=== PATIENT | female | born 1950 | race Caucasian/White ===

== ENCOUNTER 2017-03-25 17:55 | Emergency (ER) | payer OTHER, BC ==
[~2017-03-25] VITALS: Ht 167.6 cm; Wt 83.9 kg
[~2017-03-25 17:55] MED LIST: BIOTCAP2 PO; CHOL100027 PO; LOSA1TAB PO; MULTTAB PO; SERT100T PO; SOLI5TAB2 PO; ZOLP5TAB PO
[2017-03-25 18:11] VITALS: Ht 167.6 cm; Wt 83.9 kg
[2017-03-25] MEDS ORDERED: ONDANSETRON INJ 2 MG/ML 2 ML VIAL IV STA (18:20)
[2017-03-25] MEDS ORDERED: MoRPHine SULFATE 4 MG/ML 1 ML CARP\\VIAL IV STA (18:20)
[2017-03-25] MEDS ORDERED: HYDROmorphone INJ 1 MG/ML SYR IV STA (19:14)
[2017-03-25] MEDS ORDERED: LOSA50TA6 PO (19:20)
[2017-03-25] MEDS ORDERED: RANI150T2 PO (19:25)
[2017-03-25] MEDS ORDERED: LANS15CA27 PO (19:25)
[2017-03-25] MEDS ORDERED: TRAZ50TA35 PO (19:25)
--- NOTE | 2017-03-25 19:27 | DIAGNOSTIC IMAGING REPORT ---
ABD/PELVIS WITHOUT FOR STONE HISTORY: 67 years-old Female right flank pain eval for stone acute right-sided flank pain with concern for calculus. History of prior gastric bypass COMPARISON: Upper GI series 09/18/2012 TECHNIQUE: Multiple axial CT images of the abdomen and pelvis were obtained without contrast. A dose lowering technique was used consistent with the principals of HI. FINDINGS: Mild bibasilar bronchial wall thickening is noted. Groundglass opacities are present within the lung bases. Noncalcified nodules are seen within the lung bases, largest of which measures 6 mm within the lateral basal segment right lower lobe seen on image 23 series 3. No pneumoperitoneum identified. The imaged inferior cardiac chambers are mildly enlarged. The liver, pancreas and adrenal glands are within normal limits. Calcifications of the inferior posterior spleen are noted. Mild nonspecific left-sided perinephric inflammatory stranding with otherwise normal appearance of the left kidney and left ureter. Moderate right sided obstructive uropathy secondary to a 5 x 4 x 4 mm calculus of the right ureterovesicular junction. Additional right-sided nonobstructing renal calculi are present, largest of which includes a 5 mm calculus of the inferior pole right kidney. The urinary bladder is collapsed. Prior hysterectomy. Adnexa are unremarkable. There is moderate atherosclerotic plaquing of the abdominal aorta. No bulky adenopathy identified. Prior Jarvis-en-Y gastric bypass without complication. No bowel obstruction or focal bowel wall thickening. Rectosigmoid is collapsed. The appendix appears normal. Soft tissues are unremarkable. Multilevel facet arthropathy of the lumbar spine. Discogenic degenerative changes are seen of the thoracic spine. Mild convex left curvature of the lumbar spine. IMPRESSION: 1. Moderate right-sided hydroureteronephrosis secondary to a 5 x 4 x 4 mm calculus of the distal right ureter within the region of the right ureterovesicular junction. Additional nonobstructing right renal calculi are present. 2. Bibasilar bronchial wall thickening with scattered groundglass opacities suggests bronchitis with pneumonitis. 3. Solid noncalcified pulmonary nodules of the lung bases measuring up to 6 mm suggests infectious or inflammatory etiology, however nonemergent follow-up chest CT to assess for additional pulmonary nodules recommended. 4. Normal appendix. 5. Prior hysterectomy. The above report was generated using voice recognition software. It may contain grammatical, syntax or spelling errors. Electronically signed by: Julio Turner M.D. 03/25/2017 7:25 PM Dictated Date/Time: 03/25/2017 7:15 PM
[2017-03-25] MEDS ORDERED: SODIUM CHLORIDE 0.9% 500ML 500 ML IV STA (19:47)
[2017-03-25 19:49] LABS: BASO % 0.1 %; BASO ABS # 0.01 K/uL (0-0.2); COMPLETE YES; EOS % 0.3 %; HEMATOCRIT 44.8 % (37-47); IG% 0.2 %; LYMPH % 10.5 %; LYMPH ABS # 1.18 K/uL (1.2-3.4); MEAN CELL VOLUME 91.2 fL (80-100); MEAN CORPUSCULAR HEMOGLOBIN 30.1 pg (25-34); MEAN PLATELET VOLUME 9.9 fL (7.4-10.4); MONO % 6.5 %; NEUT % 82.4 %; PLATELET COUNT 198 K/uL (130-400); RED BLOOD COUNT 4.91 M/uL (4.2-5.4); WHITE BLOOD COUNT 11.23 K/uL (4.8-10.8)
[2017-03-25 20:05] LABS: BUN/CREATININE RATIO 18.4 (10-20); CALCIUM 8.9 mg/dl (8.5-10.1); CREATININE 0.8 mg/dl (0.60-1.20); POTASSIUM 3.5 mmol/L (3.5-5.1)
[2017-03-25] MEDS ORDERED: KETOROLAC TROMETHAMINE 30 MG/ML VIAL IV STA (21:36)
[2017-03-25 21:50] LABS: URINE APPEARANCE CLEAR (CLEAR); URINE BILIRUBIN NEG (NEG); URINE COLOR YELLOW; URINE EPITHELIAL CELL AUTO 20-30 /lpf (0-5); URINE NITRITE NEG (NEG); UROBILINOGEN NEG (NEG)
[2017-03-25 21:55] LABS: MANUAL MICROSCOPIC REQUIRED? NO; REVIEW REQ? YES
[2017-03-25] MEDS ORDERED: OXYC1TAB3 PO (22:38)
[2017-03-25] MEDS ORDERED: OXYCODONE IR HOME PACK PO ONE (22:45)
[2017-03-25 22:59] VITALS: BP 123/53; PULSE 74; TEMP 37; O2SAT 93
--- NOTE | 2017-03-25 23:24 | EMERGENCY ROOM VISIT NOTE ---
History Report prepared by Shruthi: Maribel Ramon Under the Supervision of: Dr. Merrick Sutton M.D. First contact with patient: 18:16 Chief Complaint: FLANK PAIN Stated Complaint: PAIN IN KIDNEY AREA, RT SIDE History of Present Illness The patient is a 67 year old female who presents to the Emergency Room with complaints of worsening right flank pain starting last night. The patient states that the pain is sharp and moves around to the front. She reports that the pain is constant and not intermittent. She reports that she has been vomiting. She denies having a fever. She notes she has been having issues urinating, but denies burning with urination and hematuria. She states that she just can't go. She does use Vesicare. She notes that she does have diarrhea. She denies a history of kidney stones and notes that she has had a cholecystectomy. The patient states that she took Ibuprofen four hours ago. Source of History: patient Onset: last night Position: other (right flank) Quality: sharp Timing: constant, worsening Modifying Factors (Relieving): ibuprofen Associated Symptoms: + vomiting, + diarrhea, + urinary symptoms, No fevers Review of Systems See HPI for pertinent positives & negatives. A total of 10 systems reviewed and were otherwise negative. Past Medical & Surgical Medical Problems: (1) Hypertension Surgical Problems: (1) History of cholecystectomy (2) History of gastric bypass Family History Diabetes mellitus FHx: cancer FHx: gallbladder disease FHx: heart disease Hypertension Kidney disease Kidney stones Social History Smoking Status: Never Smoker Marital Status: Housing Status: lives with significant other Occupation Status: retired Current/Historical Medications Scheduled Biotin (Biotin 5000), 1 TAB PO BID Cholecalciferol (Vitamin D 1000 Unit), 2,000 INTER.UNIT PO DAILY Lansoprazole (Prevacid), 15 MG PO QAM Losartan Potassium (Cozaar), 1 TAB PO DAILY Multivitamins/Minerals (Mvi With Minerals), 1 TAB PO DAILY Ranitidine HCl (Ranitidine HCl), 150 MG PO DAILY Sertraline Hcl (Zoloft), 100 MG PO DAILY Solifenacin Succinate (Vesicare), 5 MG PO Q2D Trazodone Hcl (Trazodone), 50 MG PO HS Scheduled PRN Oxycodone Ir (Roxicodone Ir), 5 MG PO Q4H PRN for Pain Zolpidem Tartrate (Ambien), 5-10 MG PO HS PRN for Sleep Allergies Coded Allergies: Prednisone (Verified Allergy, Intermediate, HEADACHES, 03/25/17) Codeine (Unverified Adverse Reaction, Severe, GETS SICK, 03/25/17) Physical Exam Vital Signs Date Time Temp Pulse Resp B/P (MAP) Pulse Ox O2 Delivery O2 Flow Rate FiO2 03/25/17 22:59 37.0 74 18 123/53 93 03/25/17 22:53 74 18 123/53 93 Room Air 03/25/17 19:44 62 18 158/62 98 Room Air 03/25/17 18:11 37.0 58 16 140/73 96 Room Air Physical Exam Constitutional: Vital signs reviewed. Eyes: Pupils are equal round reactive to light. Conjunctiva are noninjected. ENT: Pharynx is clear without erythema or exudate. Mucous membranes are moist. Neck supple without meningeal signs. Respiratory: Clear to auscultation bilaterally. Breath sounds are equal bilaterally. Cardiovascular: Regular rate and rhythm. No rubs or gallops. GI: Soft and nondistended. Right upper quadrant tenderness. No guarding. Bowel sounds are present. Musculoskeletal: No peripheral edema. No CVA tenderness. Integumentary: No cyanosis. Neurological: The patient is awake and alert. No focal deficits. Psychiatric: Normal affect. Medical Decision & Procedures ER Provider Diagnostic Interpretation: Radiology results as stated below per my review and the radiologist's interpretation: ABD/PELVIS WITHOUT FOR STONE HISTORY: 67 years-old Female right flank pain eval for stone acute right-sided flank pain with concern for calculus. History of prior gastric bypass COMPARISON: Upper GI series 09/18/2012 TECHNIQUE: Multiple axial CT images of the abdomen and pelvis were obtained without contrast. A dose lowering technique was used consistent with the principals of HI. FINDINGS: Mild bibasilar bronchial wall thickening is noted. Groundglass opacities are present within the lung bases. Noncalcified nodules are seen within the lung bases, largest of which measures 6 mm within the lateral basal segment right lower lobe seen on image 23 series 3. No pneumoperitoneum identified. The imaged inferior cardiac chambers are mildly enlarged. The liver, pancreas and adrenal glands are within normal limits. Calcifications of the inferior posterior spleen are noted. Mild nonspecific left-sided perinephric inflammatory stranding with otherwise normal appearance of the left kidney and left ureter. Moderate right sided obstructive uropathy secondary to a 5 x 4 x 4 mm calculus of the right ureterovesicular junction. Additional right-sided nonobstructing renal calculi are present, largest of which includes a 5 mm calculus of the inferior pole right kidney. The urinary bladder is collapsed. Prior hysterectomy. Adnexa are unremarkable. There is moderate atherosclerotic plaquing of the abdominal aorta. No bulky adenopathy identified. Prior Jarvis-en-Y gastric bypass without complication. No bowel obstruction or focal bowel wall thickening. Rectosigmoid is collapsed. The appendix appears normal. Soft tissues are unremarkable. Multilevel facet arthropathy of the lumbar spine. Discogenic degenerative changes are seen of the thoracic spine. Mild convex left curvature of the lumbar spine. IMPRESSION: 1. Moderate right-sided hydroureteronephrosis secondary to a 5 x 4 x 4 mm calculus of the distal right ureter within the region of the right ureterovesicular junction. Additional nonobstructing right renal calculi are present. 2. Bibasilar bronchial wall thickening with scattered groundglass opacities suggests bronchitis with pneumonitis. 3. Solid noncalcified pulmonary nodules of the lung bases measuring up to 6 mm suggests infectious or inflammatory etiology, however nonemergent follow-up chest CT to assess for additional pulmonary nodules recommended. 4. Normal appendix. 5. Prior hysterectomy. The above report was generated using voice recognition software. It may contain grammatical, syntax or spelling errors. Electronically signed by: Julio Turner M.D. 03/25/2017 7:25 PM Dictated Date/Time: 03/25/2017 7:15 PM Laboratory Results 03/25/17 19:38 Red Blood Count 4.91, Mean Corpuscular Volume 91.2, Mean Corpuscular Hemoglobin 30.1, Mean Corpuscular Hemoglobin Concent 33.0, Mean Platelet Volume 9.9, Neutrophils (%) (Auto) 82.4, Lymphocytes (%) (Auto) 10.5, Monocytes (%) (Auto) 6.5, Eosinophils (%) (Auto) 0.3, Basophils (%) (Auto) 0.1, Neutrophils # (Auto) 9.26, Lymphocytes # (Auto) 1.18, Monocytes # (Auto) 0.73, Eosinophils # (Auto) 0.03, Basophils # (Auto) 0.01 03/25/17 19:38 Test 03/25/17 19:38 03/25/17 21:31 White Blood Count 11.23 K/uL (4.8-10.8) Red Blood Count 4.91 M/uL (4.2-5.4) Hemoglobin 14.8 g/dL (12.0-16.0) Hematocrit 44.8 % (37-47) Mean Corpuscular Volume 91.2 fL (80-100) Mean Corpuscular Hemoglobin 30.1 pg (25-34) Mean Corpuscular Hemoglobin Concent 33.0 g/dl (32-36) Platelet Count 198 K/uL (130-400) Mean Platelet Volume 9.9 fL (7.4-10.4) Neutrophils (%) (Auto) 82.4 % Lymphocytes (%) (Auto) 10.5 % Monocytes (%) (Auto) 6.5 % Eosinophils (%) (Auto) 0.3 % Basophils (%) (Auto) 0.1 % Neutrophils # (Auto) 9.26 K/uL (1.4-6.5) Lymphocytes # (Auto) 1.18 K/uL (1.2-3.4) Monocytes # (Auto) 0.73 K/uL (0.11-0.59) Eosinophils # (Auto) 0.03 K/uL (0-0.5) Basophils # (Auto) 0.01 K/uL (0-0.2) RDW Standard Deviation 46.0 fL (36.4-46.3) RDW Coefficient of Variation 13.7 % (11.5-14.5) Immature Granulocyte % (Auto) 0.2 % Immature Granulocyte # (Auto) 0.02 K/uL (0.00-0.02) Anion Gap 7.0 mmol/L (3-11) Est Creatinine Clear Calc Drug Dose 72.4 ml/min Estimated GFR () 87.2 Estimated GFR (Non- 75.2 BUN/Creatinine Ratio 18.4 (10-20) Calcium Level 8.9 mg/dl (8.5-10.1) Total Bilirubin 0.4 mg/dl (0.2-1) Direct Bilirubin 0.1 mg/dl (0-0.2) Aspartate Amino Transf (AST/SGOT) 50 U/L (15-37) Alanine Aminotransferase (ALT/SGPT) 37 U/L (12-78) Alkaline Phosphatase 76 U/L (45-117) Total Protein 6.9 gm/dl (6.4-8.2) Albumin 3.7 gm/dl (3.4-5.0) Lipase 105 U/L (73-393) Urine Color YELLOW Urine Appearance CLEAR (CLEAR) Urine pH 5.0 (4.5-7.5) Urine Specific [place] 1.010 (1.000-1.030) Urine Protein NEG (NEG) Urine Glucose (UA) NEG (NEG) Urine Ketones NEG (NEG) Urine Occult Blood 3+ (NEG) Urine Nitrite NEG (NEG) Urine Bilirubin NEG (NEG) Urine Urobilinogen NEG (NEG) Urine Leukocyte Esterase TRACE (NEG) Urine WBC (Auto) 5-10 /hpf (0-5) Urine RBC (Auto) >30 /hpf (0-4) Urine Hyaline Casts (Auto) 1-5 /lpf (0-5) Urine Epithelial Cells (Auto) 20-30 /lpf (0-5) Urine Bacteria (Auto) NEG (NEG) Urine Crystals (NONE PRSENT) Laboratory results as reviewed by me. Medications Administered Medications (Trade) Dose Ordered Sig/Andra Route Start Time Stop Time Status Last Admin Dose Admin Morphine Sulfate (MoRPHine SULFATE INJ) 4 mg ONE STAT IV 03/25/17 18:20 03/25/17 18:22 DC 03/25/17 18:36 4 MG Ondansetron HCl (Zofran Inj) 4 mg NOW STAT IV 03/25/17 18:20 03/25/17 18:22 DC 03/25/17 18:36 4 MG Hydromorphone HCl (Dilaudid Inj) 0.5 mg NOW STAT IV 03/25/17 19:14 03/25/17 19:15 DC 03/25/17 19:31 0.5 MG Sodium Chloride 500 ml @ 999 mls/hr Q31M STAT IV 03/25/17 19:47 03/25/17 20:17 DC 03/25/17 19:51 999 MLS/HR Ketorolac Tromethamine (Toradol Inj) 10 mg NOW STAT IV 03/25/17 21:36 03/25/17 21:37 DC 03/25/17 21:41 10 MG Oxycodone HCl (Roxicodone Immediate Rel 5MG Home Pack) 1 homepack UD ONCE PO 03/25/17 22:45 03/25/17 22:46 DC 03/25/17 22:55 1 HOMEPACK ED Course 1816: The patient was evaluated in room B3B. A complete history and physical exam was performed. 1819: Ordered Zofran Inj 4 mg IV, Morphine Sulfate 4 mg IV. 1853: I reevaluated the patient and she is still in pain. 1913: Ordered Dilaudid Inj 0.5 mg IV. 1939: I reevaluated the patient and talked to her about her results. She just got her Dilaudid. 1946: Ordered NSS 500 ml @ 999 mls/hr IV. 2040: I reevaluated the patient and she is feeling much better. She is going to try to give a urine sample. 2131: I reevaluated the patient and she is starting to have pain again. She just gave a urine sample. 2135: Ordered Toradol Inj 10 mg IV. 2236: Upon reevaluation, the patient appeared to have improvement of her symptoms. I discussed tonight's findings with the patient. She verbalized agreement of the treatment plan. The patient was discharged home. 2244: Ordered Oxycodone HCl 1 homepack PO. Medical Decision this is a 67-year-old female who presents with right-sided flank pain. Differential diagnosis includes renal colic, hydronephrosis, UTI, pyelonephritis , strain, acute kidney injury. I did perform a limited focused review of portions of the patient's old chart on the electronic medical record. The patient has had no recent pertinent visits to this hospital. The patient is hypertensive. I did evaluate the patient as noted above. IV access was established. I did treat patient with IV morphine and Zofran. She is also given normal saline IV. I did order and review the patient's blood work as noted in the electronic medical record. Her renal function is normal. I did order a CT of the abdomen and pelvis. I did review the images myself as well as the radiology report as described above. She does have a right UVJ stone with hydronephrosis. She also had some pulmonary findings which I discussed with her and her news copy editor. She will follow up with her doctor regarding these findings. She did have continued pain and was given Dilaudid 0.5 mg IV. On reassessment she is feeling better. We did watch her for some time while waiting for urinalysis. She was able to urinate and the urinalysis showed blood but no convincing sign of infection. On reassessment she had some slight return of her pain and I treated her with Toradol IV and 10 mg. On reassessment she feels much better and is ready for discharge. She was given a home pack for oxycodone and urine strainer. She was discharged with a prescription for oxycodone and advised follow up with her doctor. She was given precautions regarding this medication. She was told to hold her Vesicare as she has had some urinary retention during the day. Medication Reconcilliation Current Medication List: was personally reviewed by me Blood Pressure Screening Patient's blood pressure: Elevated blood pressure Blood pressure disposition: Elevated BP felt to be situational Impression Primary Impression: Renal colic Scribe Attestation The scribe's documentation has been prepared under my direct and personally reviewed by me in its entirety. I confirm that the note above accurately reflects all work, treatment, procedures, and medical decision making performed by me. Departure Information Dispostion Home / Self-Care Prescriptions Oxycodone Ir (Roxicodone Ir) 5 Mg Tab 5 MG PO Q4H Y for Pain, #20 TAB Prov: Merrick Sutton M.D. 03/25/17 Referrals Rose Ramirez D.O. (PCP) Forms HOME CARE DOCUMENTATION FORM, IMPORTANT VISIT INFORMATION Patient Instructions My [facility] Additional Instructions You have been examined and treated today on an emergency basis only. This is not a substitute for, or an effort to provide, complete comprehensive medical care. It is impossible to recognize and treat all injuries or illnesses in a single emergency department visit. It is therefore important that you follow up closely with your physician. Call as soon as possible for an appointment. Return for worsening symptoms or if you develop fever, vomiting, or any other concerning symptoms.
== END 2017-03-25 23:00 | disposition home or self-care (01) ==
LOC: C.EDB 17:56
DX: N20.2 Calculus of kidney with calculus of ureter (principal); Z98.84 Bariatric surgery status; Z79.899 Other long term (current) drug therapy; I10 Essential (primary) hypertension

== ENCOUNTER → 2017-08-16 | Outpatient (CLI) | payer OTHER, BC ==
[~2017-08-16] MED LIST changes: +GADAVIST IV PRN; +LANS15CA27 PO; -LOSA1TAB PO; +LOSA50TA6 PO; +OXYC1TAB3 PO; +RANI150T2 PO; +TRAZ50TA35 PO
--- NOTE | 2017-08-16 15:50 | DIAGNOSTIC IMAGING REPORT ---
THORACIC SPINE COMBO CLINICAL HISTORY: Mid back pain. Spasms. Abnormal radiographs. COMPARISON STUDY: No previous studies for comparison. TECHNIQUE: Utilizing a 1.5 Sara magnet and dedicated coil, multiplanar, multiecho imaging of the thoracic spine was performed pre and postcontrast administration. Injection of 8 cc of Gadavist IV was uneventful. FINDINGS: Alignment of the thoracic spine is anatomic. Vertebral body heights are maintained. There is no suspicious marrow replacement. Discogenic changes at the T11-T12 level are noted. Vertebral body heights are maintained. There is moderate disc space narrowing at T11-T12. There is mild osteophytosis. Thoracic cord signal and caliber are normal. There is no intracanalicular mass or fluid collection. There is no abnormal enhancement. Paravertebral soft tissues are unremarkable. There is mild disc bulge at the T11-T12 level. Central canal and neural foramen are patent. IMPRESSION: 1. No acute abnormality within the thoracic spine by MRI. 2. Moderate disc space narrowing with minimal disc bulge at the T11-T12 level. Patent central canal and neural foramen. 3. Normal thoracic cord signal and caliber. Electronically signed by: Robert Pearson M.D. 08/16/2017 3:49 PM Dictated Date/Time: 08/16/2017 2:57 PM
== END | disposition home or self-care (01) ==
LOC: C.MRIBC 13:40
PROVIDERS: ATTEND Nurse Practitioner
DX: M48.04 Spinal stenosis, thoracic region (principal); M54.14 Radiculopathy, thoracic region; M62.838 Other muscle spasm; R93.7 Abnormal findings on diagnostic imaging of other parts of musculoskeletal system

== ENCOUNTER 2020-07-30 12:55 | Inpatient (IN) ==
--- OUTSIDE RECORDS SUMMARY | 2020-07-30 12:57 | External Medical Summary | Continuity of Care Document ---
:1950 Author Name Lance Rasmussen, Provider Address Unavailable Unavailable , Care Team Providers Name Role Phone Beulah Pompa Unavailable [email or web address] CELINE WEAVER Unavailable Unavailable Unavailable Unavailable Unavailable Problems Jaw pain (784.92) (R68.84) Earache, referred (388.72) (H92.09) Hypertension (401.9) (I10) Hearing loss (389.9) (H91.90) Eustachian tube dysfunction (381.81) (H69.80) Functional Status Hearing loss Allergies and Adverse Reactions No Known Drug Allergies (Allergy) Medications Zoloft 100 MG Oral Tablet Refills: 0 Cozaar 25 MG Oral Tablet Refills: 0 Zolpidem Tartrate 10 MG Oral Tablet Refills: 0 Zantac 150 MG TABS Refills: 0 VESIcare 5 MG Oral Tablet Refills: 0 Drisdol 1.25 MG (73664 UT) Oral Capsule Refills: 0 Flintstones Plus Iron CHEW Refills: 0 Premarin 0.625 MG/GM Vaginal Cream Refills: 0 Flonase 50 MCG/ACT SUSP Refills: 0 ProctoCream-HC 2.5 % CREA Refills: 0 Citracal Petites/Vitamin D 200-250 MG-UNIT Oral Tablet Refills: 0 Ciprodex 0.3-0.1 % Otic Suspension; INST ILL 4 DROPS IN THE AFFECTED EAR(S) TWICE DAILY KHOA Iverson Start: 28-Feb-2014 Quantity: 1 7.5 ML Bottle Refills: 3 Procedures History of Gallbladder Surgery Status: C ompleted History of Gastric Surgery Status: Compl eted History of Total Abdominal Hysterectomy Status: Completed History of Rectocele Repair Status: Comp leted History of Colonoscopy (Fiberoptic) Stat us: Completed History of Tonsillectomy With Adenoidectomy Status: Completed History of Endoscopic Ultrasound Upper Gastrointestinal Sabra jamee Status: Completed History of Laparoscopy (Diagnostic) Liver Status: Completed 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 Immunizations Immunizations not documented Family History Mother Family history of Breast Cancer (V16.3) Status: Active Family history of Cancer Status: Active Family history of Hypertension (V17.49) Status: Active Father Family history of Diabetes Mellitus (V18.0) Status: Active Family history of Hypertension (V17.49) Status: Active Family history of Heart Disease (V17.49) Status: Active Social History - Smoking Status Ex-smoker Plan of Treatment Planned Observations Planned Goals not documented Results No Known Results Results not documented Encounters Appointment; Beulah Whalen CCC-A 08-Jul-2015 10:40 Encounter Diagnosis: Problem not documented
--- OUTSIDE RECORDS SUMMARY | 2020-07-30 12:58 | External Medical Summary | Continuity of Care Document ---
:1950 Author Name Lance Rasmussen, Provider Address Unavailable Unavailable , Care Team Providers Name Role Phone Beulah Pompa Unavailable [email or web address] Kierra Iverson PA-C Unavailable [email or web address] CELINE WEAVER Unavailable Unavailable Unavailable Unavailable Unavailable Problems Hypertension (401.9) (I10) Earache, referred (388.72) (H92.09) Jaw pain (784.92) (R68.84) Eustachian tube dysfunction (381.81) (H69.80) Hearing loss (389.9) (H91.90) Functional Status Hearing loss Allergies and Adverse Reactions No Known Drug Allergies (Allergy) Medications Zoloft 100 MG Oral Tablet Refills: 0 Cozaar 25 MG Oral Tablet Refills: 0 Zolpidem Tartrate 10 MG Oral Tablet Refills: 0 Zantac 150 MG TABS Refills: 0 VESIcare 5 MG Oral Tablet Refills: 0 Drisdol 1.25 MG (67033 UT) Oral Capsule Refills: 0 Flintstones Plus [...]
[2020-07-30] MEDS ORDERED: SODIUM CHLORIDE 0.9% 1000ML 1,000 ML IV ONE (15:53)
--- NOTE | 2020-07-30 16:09 | Emergency Department Note ---
Impression & Plan Pneumonia, Anemia, Hypoxia, Thrombocytopenia ED Provider Note NAME: SUJATHA ALVARADO AGE: 70 SEX: F : 1950 ARRIVES VIA: Walk-In INFORMANT: Patient, ED PROVIDER(S): George Campa DO CHIEF COMPLAINT: Fever HPI: The patient is a 70-year-old female who presented to the emergency department for an evaluation of fever and cough. The patient states that she noticed febrile symptoms over the course the last 6 days. She is also noticed decreased p.o. intake because of her taste is "funny". She states that she is not been eating or drinking because of this. She [facility] but then sent directly to the emergency department because she had a low pulse ox. The patient does not normally wear oxygen. She is a former smoker. She did not see her family doctor for the symptoms. She did have a Covid swab recently but this was not resulted yet. She denies having any chest pain. She denies having any rashes or lower extremity pain. She has had no vomiting or diarrhea. She is not been immunized against COVID-19. ROS: See above HPI for pertinent positives & negatives. A total of 10 systems reviewed and were otherwise negative. PAST MEDICAL HISTORY: See Below PAST SURGICAL HISTORY: See Below FAMILY HISTORY: See Below SOCIAL HISTORY: See Below HOME MEDICATIONS: See Below ALLERGIES: See Below VITALS: See Below PHYSICAL EXAMINATION: GENERAL: Patient is awake alert in no acute distress patient is resting comfortably and showing no signs of anxiety EYES: The conjunctivae are clear. The pupils are round and reactive. EARS, NOSE, MOUTH AND THROAT: The nose is without any evidence of any deformity. NECK: The neck is nontender and supple. RESPIRATORY: Normal respiratory effort was noted. There was no conversational dyspnea. There were diminished absent breath sounds at the left base. Scant wheezing was noted in the upper lung khoury. Poor air movement was also noted at the right base. CARDIOVASCULAR: Regular rate and rhythm noted there no murmurs rubs or gallops normal S1 normal S2. GASTROINTESTINAL: The abdomen is soft. Abdomen is nontender. MUSCULOSKELETAL/EXTREMITIES: There is no evidence of gross deformity full range of motion is noted in the hips and shoulders. SKIN: There is no obvious evidence of any rash. There are no petechiae, pallor or cyanosis noted. NEUROLOGIC: Patient is awake alert and oriented x3. MEDICAL DECISION MAKING: The patient is a 70-year-old female who presented to the emergency department for evaluation of fever and cough. The patient went to [facility] but was sent to the emergency department because her oxygen saturation was low. She was placed on supplemental oxygen was feeling much better. I discussed the patient's laboratory and radiographic studies with her. She was found to have anemia as well as thrombocytopenia. Chest x-ray appeared to be consistent with an infiltrate. Given her fever and her physical exam findings as well as her chest x-ray I do feel this is more likely a pulmonary infection although given her other findings it is possible this represents another cause for her findings. I discussed the patient's condition with the on-call [facility] hospitalist. They have agreed to evaluate patient in the emergency department for further management and disposition. Likely the patient will require further work-up to evaluate the cause of her CBC abnormalities as well as her chest x- ray findings. Triage Nursing notes reviewed. Prior medical records reviewed Vital Signs: reviewed and remarkable for hypoxia and fever. Differential diagnosis: Viral syndrome, otitis, pharyngitis, pneumonia, influenza, meningitis, urinary tract infection, sepsis, bacteremia, as well as other pathologies. ER treatment provided: See below Diagnostics interpreted by me: ECG: EKG was obtained in the emergency department. My interpretation is atrial fibrillation at 84 bpm. There were no PVCs noted. Inferior Q waves were noted. Lateral ST segment abnormalities were noted. This was compared to a tracing from November 182014. Sinus rhythm has been replaced by atrial fibrillation compared to the previous tracing. Otherwise no acute changes were noted. Cardiac Monitoring: An order was placed for continuous cardiac monitoring. The monitor shows a rate of 82 bpm with atrial fibrillation rhythm. Laboratory studies: As stated above and show below. Imaging studies: See below Consultation(s): I discussed this case with Dr. Bejarano [facility] He is agreed to evaluate the patient in the emergency department for further management and disposition. Past Med/Surg History Medical History Chronic diarrhea Depression Dyslipidemia Hypertension DMITRY (obstructive sleep apnea) Overactive bladder Surgical History History of cholecystectomy History of partial hysterectomy History of Jarvis-en-Y gastric bypass History of tonsillectomy and adenoidectomy S/P repair of paraesophageal hernia S/P KATINA (total abdominal hysterectomy) Family History Mother Breast cancer Social History Smoking Status: Former smoker Second Hand Exposure: No; Do You Dip or Chew Tobacco: No; Tobacco Cessation Education Requested by Patient: No Hx Alcohol Use: No Hx Substance Use: No Preferred Language: Citizen Of [place] [employer] Required: No Beliefs That Will Affect Care: None Current Living Situation: Spouse Other Information That Helps Us Care for You: No Feels Safe at Home: Yes Safety Concerns: Feels Safe At This Time Assistive Devices: Denture - Upper, Glasses, Hearing Aid - Left and Hearing Aid - Right Allergies Allergies Allergy/AdvReac Type Severity Reaction Status Date / Time prednisone Allergy Intermediate HEADACHES Verified 07/30/20 19:02 codeine AdvReac Severe Nausea Unverified 07/30/20 19:02 Home Meds Home Medications Medication Instructions Recorded Confirmed biotin 5,000 mcg SUBLINGUAL BID 07/30/20 07/30/20 calcium citrate-vitamin D3 2 tab PO DAILY 07/30/20 07/30/20 [Citracal Regular] cholecalciferol (vitamin D3) 50 mcg PO DAILY 07/30/20 07/30/20 cyanocobalamin (vitamin B-12) 1,000 mcg IM UD 07/30/20 07/30/20 ergocalciferol (vitamin D2) 1,250 mcg PO DAILY 07/30/20 07/30/20 [Vitamin D2] escitalopram oxalate 20 mg PO DAILY 07/30/20 07/30/20 losartan 50 mg PO DAILY 07/30/20 07/30/20 multivitamin [Multiple Vitamin] 1 tab PO DAILY 07/30/20 07/30/20 oxybutynin chloride 10 mg PO DAILY 07/30/20 07/30/20 zolpidem 10 mg PO HS PRN 07/30/20 07/30/20 Results & Data (ED) Vital Signs Vital Signs - 24 hr 07/30/20 13:22 07/30/20 16:32 07/30/20 17:01 Temperature 37.3 C Temperature Source Temporal Artery Scan Pulse Rate 99 H 81 81 Pulse Rate [Left] 80 Pulse Rate from SpO2 Sensor 82 Pulse Rhythm Regular Pulse Strength Normal Respiratory Rate 20 20 18 Respiratory Effort / Characteristics Non-Labored Spontaneous Non-Labored Spontaneous Respiratory Depth Normal Normal Respiratory Pattern Regular Blood Pressure 124/66 137/69 Blood Pressure [Right Arm] 137/69 Blood Pressure Mean 85 91 Blood Pressure Mean [Right Arm] 91 Blood Pressure Position Sitting Blood Pressure Position [Right Arm] Lying Pulse Oximetry 91 98 98 Oxygen Delivery Method Room Air Nasal Cannula Oxygen Flow Rate 2 Sepsis Recent Fever Within 48 Hours Yes Sepsis New/Unexplained Change in Mental Status No Sepsis Action Taken by Nursing No Action Required 07/30/20 17:05 07/30/20 17:09 07/30/20 17:10 Temperature Temperature Source Pulse Rate 80 76 Pulse Rate [Left] 81 Pulse Rate from SpO2 Sensor 80 77 Pulse Rhythm Pulse Strength Respiratory Rate 19 20 18 Respiratory Effort / Characteristics Non-Labored Spontaneous Respiratory Depth Respiratory Pattern Blood Pressure Blood Pressure [Right Arm] 137/89 Blood Pressure Mean Blood Pressure Mean [Right Arm] 105 Blood Pressure Position Blood Pressure Position [Right Arm] Lying Pulse Oximetry 98 98 98 Oxygen Delivery Method Nasal Cannula Oxygen Flow Rate 2 Sepsis Recent Fever Within 48 Hours Sepsis New/Unexplained Change in Mental Status Sepsis Action Taken by Nursing 07/30/20 17:20 07/30/20 17:30 07/30/20 17:40 Temperature Temperature Source Pulse Rate 79 75 75 Pulse Rate [Left] Pulse Rate from SpO2 Sensor 80 75 75 Pulse Rhythm Pulse Strength Respiratory Rate 19 19 20 Respiratory Effort / Characteristics Respiratory Depth Respiratory Pattern Blood Pressure Blood Pressure [Right Arm] Blood Pressure Mean Blood Pressure Mean [Right Arm] Blood Pressure Position Blood Pressure Position [Right Arm] Pulse Oximetry 99 99 99 Oxygen Delivery Method Oxygen Flow Rate Sepsis Recent Fever Within 48 Hours Sepsis New/Unexplained Change in Mental Status Sepsis Action Taken by Nursing 07/30/20 17:50 07/30/20 18:00 07/30/20 18:10 Temperature Temperature Source Pulse Rate 77 76 77 Pulse Rate [Left] Pulse Rate from SpO2 Sensor 77 76 77 Pulse Rhythm Pulse Strength Respiratory Rate 19 20 20 Respiratory Effort / Characteristics Respiratory Depth Respiratory Pattern Blood Pressure Blood Pressure [Right Arm] Blood Pressure Mean Blood Pressure Mean [Right Arm] Blood Pressure Position Blood Pressure Position [Right Arm] Pulse Oximetry 99 99 98 Oxygen Delivery Method Oxygen Flow Rate Sepsis Recent Fever Within 48 Hours Sepsis New/Unexplained Change in Mental Status Sepsis Action Taken by Nursing 07/30/20 18:20 07/30/20 18:30 07/30/20 18:40 Temperature Temperature Source Pulse Rate 77 78 83 Pulse Rate [Left] Pulse Rate from SpO2 Sensor 77 78 81 Pulse Rhythm Pulse Strength Respiratory Rate 21 19 19 Respiratory Effort / Characteristics Respiratory Depth Respiratory Pattern Blood Pressure Blood Pressure [Right Arm] Blood Pressure Mean Blood Pressure Mean [Right Arm] Blood Pressure Position Blood Pressure Position [Right Arm] Pulse Oximetry 98 98 98 Oxygen Delivery Method Oxygen Flow Rate Sepsis Recent Fever Within 48 Hours Sepsis New/Unexplained Change in Mental Status Sepsis Action Taken by Nursing 07/30/20 18:50 07/30/20 19:13 07/30/20 19:26 Temperature Temperature Source Pulse Rate 80 79 Pulse Rate [Left] Pulse Rate from SpO2 Sensor 80 79 Pulse Rhythm Pulse Strength Respiratory Rate 19 19 Respiratory Effort / Characteristics Non-Labored Spontaneous Respiratory Depth Respiratory Pattern Blood Pressure 140/58 L Blood Pressure [Right Arm] Blood Pressure Mean 85 Blood Pressure Mean [Right Arm] Blood Pressure Position Blood Pressure Position [Right Arm] Pulse Oximetry 98 98 Oxygen Delivery Method Nasal Cannula Oxygen Flow Rate 2 Sepsis Recent Fever Within 48 Hours Sepsis New/Unexplained Change in Mental Status Sepsis Action Taken by Nursing 07/30/20 19:30 07/30/20 19:44 07/30/20 20:04 Temperature Temperature Source Pulse Rate 78 88 Pulse Rate [Left] 77 Pulse Rate from SpO2 Sensor 78 89 Pulse Rhythm Pulse Strength Respiratory Rate 19 20 17 Respiratory Effort / Characteristics Respiratory Depth Respiratory Pattern Blood Pressure 135/68 166/80 H Blood Pressure [Right Arm] 135/68 Blood Pressure Mean 90 108 Blood Pressure Mean [Right Arm] 90 Blood Pressure Position Blood Pressure Position [Right Arm] Pulse Oximetry 98 98 92 Oxygen Delivery Method Nasal Cannula Oxygen Flow Rate 2 Sepsis Recent Fever Within 48 Hours Sepsis New/Unexplained Change in Mental Status Sepsis Action Taken by Nursing 07/30/20 20:30 07/30/20 20:37 07/30/20 20:45 Temperature 37.8 C H Temperature Source Oral Pulse Rate 83 Pulse Rate [Left] Pulse Rate from SpO2 Sensor 82 Pulse Rhythm Pulse Strength Respiratory Rate 19 18 Respiratory Effort / Characteristics Non-Labored Spontaneous Respiratory Depth Respiratory Pattern Blood Pressure Blood Pressure [Right Arm] Blood Pressure Mean Blood Pressure Mean [Right Arm] Blood Pressure Position Blood Pressure Position [Right Arm] Pulse Oximetry 99 94 Oxygen Delivery Method Nasal Cannula Oxygen Flow Rate 2 Sepsis Recent Fever Within 48 Hours Sepsis New/Unexplained Change in Mental Status Sepsis Action Taken by Nursing 07/30/20 21:00 07/30/20 21:15 07/30/20 21:40 Temperature 37.6 C H Temperature Source Pulse Rate 82 85 Pulse Rate [Left] 78 Pulse Rate from SpO2 Sensor 83 85 Pulse Rhythm Pulse Strength Respiratory Rate 20 16 16 Respiratory Effort / Characteristics Non-Labored Spontaneous Respiratory Depth Respiratory Pattern Blood Pressure 151/62 H Blood Pressure [Right Arm] Blood Pressure Mean 91 Blood Pressure Mean [Right Arm] Blood Pressure Position Blood Pressure Position [Right Arm] Pulse Oximetry 97 96 91 Oxygen Delivery Method Nasal Cannula Oxygen Flow Rate 1.5 Sepsis Recent Fever Within 48 Hours Sepsis New/Unexplained Change in Mental Status Sepsis Action Taken by Nursing 07/30/20 21:43 07/30/20 21:50 07/30/20 22:00 Temperature Temperature Source Pulse Rate 81 87 Pulse Rate [Left] Pulse Rate from SpO2 Sensor 81 86 Pulse Rhythm Pulse Strength Respiratory Rate 16 16 16 Respiratory Effort / Characteristics Non-Labored Spontaneous Respiratory Depth Respiratory Pattern Blood Pressure 127/61 Blood Pressure [Right Arm] Blood Pressure Mean 83 Blood Pressure Mean [Right Arm] Blood Pressure Position Blood Pressure Position [Right Arm] Pulse Oximetry 93 93 94 Oxygen Delivery Method Nasal Cannula Oxygen Flow Rate 2 Sepsis Recent Fever Within 48 Hours Sepsis New/Unexplained Change in Mental Status Sepsis Action Taken by [facility] Medications Current Medication List: was personally reviewed by me Laboratory Data Attestation: I reviewed the patient's lab results. Result diagrams: 07/31/20 06:09 07/31/20 06:09 Lab Results 07/30/20 07/30/20 07/30/20 Range/Units 16:40 16:40 16:40 WBC 5.43 (4.8-10.8) K/uL RBC 2.50 L (4.2-5.4) M/uL Hgb 8.5 L (12.0-16.0) g/dL Hct 26.4 L (37-47) % MCV 105.6 H (80-100) fL MCH 34.0 (25-34) pg MCHC 32.2 (32-36) g/dL RDW Std Deviation 60.8 H (36.4-46.3) fL RDW Coeff of Laila 15.9 H (11.5-14.5) % Plt Count 32 L (130-400) K/uL Absolute Nucleated RBC 0.11 H (0-0) K/uL Nucleated RBC % (auto) 2.0 % Neutrophils % (Manual) 11.3 % Lymphocytes % (Manual) 59.2 % Monocytes % (Manual) 27.8 % Blast Cells % (Manual) 1.7 % Neutrophils # (Manual) 0.61 L (1.4-6.5) K/uL Total Absolute Neuts 0.61 L* (1.4-6.5) K/uL Lymphocytes # (Manual) 3.21 (1.2-3.4) K/uL Total Abs Lymphocytes 3.21 (1.2-3.4) K/uL Monocytes # (Manual) 1.51 H (0.11-0.59) K/uL Blast Cells # (Man) 0.09 H (0-0) K/uL Platelet Estimate Decreased L (Normal) Anisocytosis Present Peripher Smr Path Cons PT 11.2 (9.0-12.0) Seconds INR 1.1 (0.9-1.1) APTT 27.9 (21.0-31.0) Seconds PTT Ratio 1.1 Sodium 140 (136-145) mmol/L Potassium 3.2 L (3.5-5.1) mmol/L Chloride 104 (98-107) mmol/L Carbon Dioxide 30 (21-32) mmol/L Anion Gap 7.0 (3-11) BUN 11 (7-18) mg/dl Creatinine 0.76 (0.6-1.2) mg/dl Est Cr Clr Drug Dosing 73.0 ml/min Est GFR ( Amer) 90.8 Est GFR (Non-Af Amer) 78.4 BUN/Creatinine Ratio 13.9 (10-20) Glucose 126 H (70-99) mg/dl Lactate (0.4-2.0) mmol/L Calcium 8.2 L (8.5-10.1) mg/dl Magnesium 2.4 (1.8-2.4) mg/dl Total Bilirubin 0.5 (0.2-1) mg/dl AST 24 (15-37) U/L ALT 31 (12-78) U/L Alkaline Phosphatase 42 L (45-117) U/L Troponin I < 0.015 (0-0.045) ng/ml Total Protein 6.6 (6.4-8.2) gm/dl Albumin 2.9 L (3.4-5.0) gm/dl Globulin 3.7 (2.5-4.0) gm/dl Albumin/Globulin Ratio 0.8 L (0.9-2) Procalcitonin (0-0.5) ng/ml COVID-19 Eval Order SARS-CoV-2 (PCR) (Negative) Influenza Type A (PCR) (Neg) Influ A Molecular Assay Influenza Type B (PCR) (Neg) Influ B Molecular Assay RSV (RT-PCR) (Neg) 07/30/20 07/30/20 07/30/20 Range/Units 16:40 16:50 16:50 WBC (4.8-10.8) K/uL RBC (4.2-5.4) M/uL Hgb (12.0-16.0) g/dL Hct (37-47) % MCV (80-100) fL MCH (25-34) pg MCHC (32-36) g/dL RDW Std Deviation (36.4-46.3) fL RDW Coeff of Laila (11.5-14.5) % Plt Count (130-400) K/uL Absolute Nucleated RBC (0-0) K/uL Nucleated RBC % (auto) % Neutrophils % (Manual) % Lymphocytes % (Manual) % Monocytes % (Manual) % Blast Cells % (Manual) % Neutrophils # (Manual) (1.4-6.5) K/uL Total Absolute Neuts (1.4-6.5) K/uL Lymphocytes # (Manual) (1.2-3.4) K/uL Total Abs Lymphocytes (1.2-3.4) K/uL Monocytes # (Manual) (0.11-0.59) K/uL Blast Cells # (Man) (0-0) K/uL Platelet Estimate (Normal) Anisocytosis Peripher Smr Path Cons PT (9.0-12.0) Seconds INR (0.9-1.1) APTT (21.0-31.0) Seconds PTT Ratio Sodium (136-145) mmol/L Potassium (3.5-5.1) mmol/L Chloride (98-107) mmol/L Carbon Dioxide (21-32) mmol/L Anion Gap (3-11) BUN (7-18) mg/dl Creatinine (0.6-1.2) mg/dl Est Cr Clr Drug Dosing ml/min Est GFR ( Amer) Est GFR (Non-Af Amer) BUN/Creatinine Ratio (10-20) Glucose (70-99) mg/dl Lactate (0.4-2.0) mmol/L Calcium (8.5-10.1) mg/dl Magnesium (1.8-2.4) mg/dl Total Bilirubin (0.2-1) mg/dl AST (15-37) U/L ALT (12-78) U/L Alkaline Phosphatase (45-117) U/L Troponin I (0-0.045) ng/ml Total Protein (6.4-8.2) gm/dl Albumin (3.4-5.0) gm/dl Globulin (2.5-4.0) gm/dl Albumin/Globulin Ratio (0.9-2) Procalcitonin 0.06 (0-0.5) ng/ml COVID-19 Eval Order CovFluRsv at [facility] SARS-CoV-2 (PCR) (Negative) Influenza Type A (PCR) (Neg) Influ A Molecular Assay Cancelled Influenza Type B (PCR) (Neg) Influ B Molecular Assay Cancelled RSV (RT-PCR) (Neg) 07/30/20 07/30/20 Range/Units 16:50 16:55 WBC (4.8-10.8) K/uL RBC (4.2-5.4) M/uL Hgb (12.0-16.0) g/dL Hct (37-47) % MCV (80-100) fL MCH (25-34) pg MCHC (32-36) g/dL RDW Std Deviation (36.4-46.3) fL RDW Coeff of Laila (11.5-14.5) % Plt Count (130-400) K/uL Absolute Nucleated RBC (0-0) K/uL Nucleated RBC % (auto) % Neutrophils % (Manual) % Lymphocytes % (Manual) % Monocytes % (Manual) % Blast Cells % (Manual) % Neutrophils # (Manual) (1.4-6.5) K/uL Total Absolute Neuts (1.4-6.5) K/uL Lymphocytes # (Manual) (1.2-3.4) K/uL Total Abs Lymphocytes (1.2-3.4) K/uL Monocytes # (Manual) (0.11-0.59) K/uL Blast Cells # (Man) (0-0) K/uL Platelet Estimate (Normal) Anisocytosis Peripher Smr Path Cons PT (9.0-12.0) Seconds INR (0.9-1.1) APTT (21.0-31.0) Seconds PTT Ratio Sodium (136-145) mmol/L Potassium (3.5-5.1) mmol/L Chloride (98-107) mmol/L Carbon Dioxide (21-32) mmol/L Anion Gap (3-11) BUN (7-18) mg/dl Creatinine (0.6-1.2) mg/dl Est Cr Clr Drug Dosing ml/min Est GFR ( Amer) Est GFR (Non-Af Amer) BUN/Creatinine Ratio (10-20) Glucose (70-99) mg/dl Lactate 1.0 (0.4-2.0) mmol/L Calcium (8.5-10.1) mg/dl Magnesium (1.8-2.4) mg/dl Total Bilirubin (0.2-1) mg/dl AST (15-37) U/L ALT (12-78) U/L Alkaline Phosphatase (45-117) U/L Troponin I (0-0.045) ng/ml Total Protein (6.4-8.2) gm/dl Albumin (3.4-5.0) gm/dl Globulin (2.5-4.0) gm/dl Albumin/Globulin Ratio (0.9-2) Procalcitonin (0-0.5) ng/ml COVID-19 Eval Order SARS-CoV-2 (PCR) NEGATIVE (Negative) Influenza Type A (PCR) Negative (Neg) Influ A Molecular Assay Influenza Type B (PCR) Negative (Neg) Influ B Molecular Assay RSV (RT-PCR) Negative (Neg) Administered Medications Acetaminophen (Acetaminophen 325 Mg Tab) 650 mg PO Q6H PRN PRN Reason: Fever Stop: 08/29/20 20:30 Last Admin: 07/30/20 20:37 Dose: 650 mg Documented by: [id number] Doxycycline Hyclate (Doxycycline Hyclate 100 Mg Cap) 100 mg PO BID BLU Stop: 08/07/20 08:59 Last Admin: 07/31/20 09:30 Dose: 100 mg Documented by: [id number] Escitalopram Oxalate (Escitalopram Oxalate 20 Mg Tab) 20 mg PO DAILY BLU Stop: 08/30/20 08:59 Last Admin: 07/31/20 09:30 Dose: 20 mg Documented by: [id number] Guaifenesin (Guaifenesin 600 Mg Tabcr) 600 mg PO Q12 BLU Stop: 08/30/20 08:59 Last Admin: 07/31/20 09:30 Dose: 600 mg Documented by: [id number] Potassium Chloride 40 meq/ (Sodium Chloride) 1,020 mls @ 60 mls/hr IV .Q17H ONE Stop: 07/31/20 16:59 Last Admin: 07/31/20 00:20 Dose: 60 mls/hr Documented by: [id number] Losartan Potassium (Losartan Potassium 50 Mg Tab) 50 mg PO DAILY BLU Stop: 08/30/20 08:59 Last Admin: 07/31/20 09:29 Dose: 50 mg Documented by: [id number] Multivitamins (Multivitamin Tab) 1 tab PO DAILY BLU Stop: 08/30/20 08:59 Last Admin: 07/31/20 09:30 Dose: 1 tab Documented by: [id number] Oxybutynin Chloride (Oxybutynin Chloride Xl 5 Mg Tabcr) 10 mg PO DAILY BLU Stop: 08/30/20 08:59 Last Admin: 07/31/20 09:30 Dose: 10 mg Documented by: [id number] Vitamin D (Cholecalciferol 1,000 Units 25 Mcg Tab) 2,000 units PO DAILY BLU Stop: 08/30/20 08:59 Last Admin: 07/31/20 09:29 Dose: 2,000 units Documented by: [id number] Zolpidem Tartrate (Zolpidem Tartrate 10 Mg Tab) 10 mg PO HS PRN PRN Reason: Insomnia Stop: 08/29/20 23:23 Last Admin: 07/31/20 00:25 Dose: 10 mg Documented by: [id number] Discontinued Medications Albuterol (Albut/Ipratrop 3mg/0.5mg Neb 3 Ml Vial) 3 ml NEB NOW STA Stop: 07/30/20 21:03 Last Admin: 07/30/20 21:20 Dose: 3 ml Documented by: [id number] Albuterol (Albut/Ipratrop 3mg/0.5mg Neb 3 Ml Vial) Confirm Administered Dose 3 ml .ROUTE .STK-MED ONE Stop: 07/30/20 21:10 Last Admin: 07/31/20 03:34 Dose: Not Given Documented by: [id number] Guaifenesin (Guaifenesin 600 Mg Tabcr) 600 mg PO ONE STA Stop: 07/30/20 21:39 Last Admin: 07/30/20 21:59 Dose: 600 mg Documented by: [id number] Sodium Chloride (Nss 1000ml) 1,000 mls @ 999 mls/hr IV .Q1H1M ONE Stop: 07/30/20 16:53 Last Infusion: 07/30/20 18:16 Dose: 0 mls/hr Documented by: [id number] Admin: 07/30/20 16:55 Dose: 999 mls/hr Documented by: [id number] Ceftriaxone Sodium (Rocephin) 1,000 mg in 50 mls @ 100 mls/hr IV NOW STA Stop: 07/30/20 16:51 Last Infusion: 07/30/20 18:16 Dose: 0 mls/hr Documented by: [id number] Admin: 07/30/20 16:55 Dose: 100 mls/hr Documented by: [id number] Doxycycline Hyclate 100 mg/ (Dextrose) 110 mls @ 50 mls/hr IV NOW STA Stop: 07/30/20 23:13 Last Infusion: 07/31/20 00:21 Dose: 0 mls/hr Documented by: [id number] Admin: 07/30/20 21:59 Dose: 50 mls/hr Documented by: [id number] Losartan Potassium (Losartan Potassium 50 Mg Tab) 50 mg PO NOW STA Stop: 07/30/20 20:09 Last Admin: 07/30/20 20:38 Dose: Not Given Documented by: [id number] Methylprednisolone (Methylprednisolone 40 Mg/Ml Vial) 20 mg IV ONE STA Stop: 07/30/20 21:30 Last Admin: 07/30/20 21:38 Dose: 20 mg Documented by: [id number] Potassium Chloride (Potassium Chloride Crtab 20 Meq Tabcr) 40 meq PO NOW STA Stop: 07/30/20 20:09 Last Admin: 07/30/20 20:37 Dose: 40 meq Documented by: [id number] Imaging Data Radiologist's Impression: [facility], [id number] XRay Report Patient: SUJATHA ALVARADO AAdmit Date: 07/30/20#: [id number]: Vini Kelsey ID:[id number]: Date: 1950City Zip: [place] [address]Stu: 70Location: EDSex: FRoom/Bed:Att Phy:Diagnosis: fever, sobPri Phy: Rose Ramirez D.O.Service Date: 07/30/20Fa Phy:Interpreting Phy: Jose Elias Huerta MDAdmit Phy: Ordering Phy: George Campa DO cc: ~ XR chest 1V portable HISTORY: SEPSIS COMPARISON: Chest 11/17/2014. FINDINGS: Right upper lobe focal airspace opacity which measures 7 cm. The left lung is clear. The heart is top normal in size. No pleural effusions. No pneumothorax. There is slight elevation the right hemidiaphragm. IMPRESSION: Right upper lobe airspace opacity. This favors a pneumonia. However, one month chest follow-up recommended to exclude the possibility of a pulmonary lesion. ACT 112: Negative or not required by law. Electronically signed by: Jose Elias Huerta M.D. 07/30/2020 4:25 PM Dictated: 07/30/20 1613Transcribed: 07/30/20 1613 Blood Pressure Blood Pressure Findings: Normal blood pressure Discharge Plan Visit Data Chief Complaint: Fever Stated Complaint: fever, sob ED Provider: George Campa Discharge Problem: Pneumonia, Anemia, Hypoxia, Thrombocytopenia Patient Disposition: Admitted As Inpatient Condition: Good Discharge Problem: Pneumonia Qualifiers: Pneumonia type: due to unspecified organism Laterality: right Lung location: upper lobe of lung Qualified Code(s): J18.9 - Pneumonia, unspecified organism Anemia Qualifiers: Anemia type: unspecified type Qualified Code(s): D64.9 - Anemia, unspecified
[2020-07-30] MEDS ORDERED: cefTRIAXone SODIUM 1,000 MG/50 ML BAG IV STA (16:22)
--- NOTE | 2020-07-30 16:26 | XRay Report ---
XR chest 1V portable HISTORY: SEPSIS COMPARISON: Chest 11/17/2014. FINDINGS: Right upper lobe focal airspace opacity which measures 7 cm. The left lung is clear. The he art is top normal in size. No pleural effusions. No pneumothorax. There is slight elevation the right hemidiaphragm. IMPRESSION: Right upper lobe airspace opacity. This favors a pneumonia. However, one month chest follow-up recomm ended to exclude the possibility of a pulmonary lesion. ACT 112: Negative or not required by law. Electronically signed by: Jose Elias Huerta M.D. 07/30/2020 4:25 PM
[2020-07-30 17:09] LABS: INR 1.1 (0.9-1.1); Partial Thromboplastin Ratio 1.1; Partial Thromboplastin Time 27.9 Seconds (21.0-31.0); Prothrombin Time 11.2 Seconds (9.0-12.0)
[2020-07-30 17:15] LABS: Alanine Aminotransferase 31 U/L (12-78); Albumin Level 2.9 gm/dl (3.4-5.0); Aspartate Aminotransferase 24 U/L (15-37); BUN Creatinine Ratio 13.9 (10-20); Blood Urea Nitrogen 11 mg/dl (7-18); Calcium 8.2 mg/dl (8.5-10.1); Carbon Dioxide 30 mmol/L (21-32); Chloride 104 mmol/L (98-107); Est GFR (African American) 90.8; Est GFR (Non-African American) 78.4; Glucose 126 mg/dl (70-99); Magnesium 2.4 mg/dl (1.8-2.4); Potassium 3.2 mmol/L (3.5-5.1); Sodium 140 mmol/L (136-145)
[2020-07-30 17:19] LABS: Albumin Globulin Ratio 0.8 (0.9-2); Alkaline Phosphatase 42 U/L (45-117); Bilirubin,Total 0.5 mg/dl (0.2-1); Globulin 3.7 gm/dl (2.5-4.0); Total Protein 6.6 gm/dl (6.4-8.2); Troponin I < 0.015 ng/ml (0-0.045)
[2020-07-30 17:40] LABS: Influenza A virus by PCR Negative (Neg); Influenza B virus by PCR Negative (Neg); RSV by PCR Negative (Neg); SARS CoV2 RNA(COVID-19) InHosp NEGATIVE (Negative)
[2020-07-30 17:42] LABS: Hematocrit (blood only) 26.4 % (37-47); Hemoglobin 8.5 g/dL (12.0-16.0); Mean Corpuscular Hgb Conc 32.2 g/dL (32-36); Mean Corpuscular Volume 105.6 fL (80-100); Nucleated RBC # (auto) 0.11 K/uL (0-0); Platelet Count 32 K/uL (130-400); RDW Coefficient of Variation 15.9 % (11.5-14.5); RDW Standard Deviation 60.8 fL (36.4-46.3); White Blood Count 5.43 K/uL (4.8-10.8)
[2020-07-30 17:58] LABS: Anisocytosis Present; Platelet Estimate Decreased (Normal)
[2020-07-30 18:02] LABS: ALC (manual) 3.21 K/uL (1.2-3.4); ANC (manual) 0.61 K/uL (1.4-6.5); Blast # (manual) 0.09 K/uL (0-0); Blast Cells % (manual) 1.7 %; Lymphocytes # (manual) 3.21 K/uL (1.2-3.4); Lymphocytes % (manual) 59.2 %; Monocytes # (manual) 1.51 K/uL (0.11-0.59); Monocytes % (manual) 27.8 %; Neutrophils # (manual) 0.61 K/uL (1.4-6.5); Neutrophils % (manual) 11.3 %
[2020-07-30] MEDS ORDERED: POTASSIUM CHLORIDE CRTAB 20 MEQ TABCR PO STA (20:08)
[2020-07-30] MEDS ORDERED: LOSARTAN POTASSIUM 50 MG TAB PO STA (20:08)
[2020-07-30] MEDS ORDERED: ACETAMINOPHEN 325 MG TAB PO PRN (20:31)
--- NOTE | 2020-07-30 21:00 | History & Physical Report ---
Date of Service July 30, 2020 Assessment & Plan (1) Pneumonia: (2) Anemia: Please refer to Dr. Kelly's addendum for assessment and plan. History of Present Illness Chief Complaint: Fever, weakness, cough Primary Care Provider: Monica Stewart DO 70-year-old female with PMH dyslipidemia, HTN, history of Jarvis-en-Y gastric bypass, chronic diarrhea, and other problems listed below who presents to the ED for evaluation of fever, weakness, cough. Patient reports she has been sick for about the past 5 days. Reports persistent fever of around 101. Reports a dry, nonproductive cough. She reports shortness of breath at rest as well as with minimal exertion. She has had a very poor appetite however denies nausea and vomiting. No abdominal pain. Reports chronic diarrhea that is worse from baseline. Denies hematemesis or coffee-ground emesis. No bright red bleeding per rectum or dark tarry stools. Denies chest pain. No lightheadedness, dizziness, diaphoresis, syncopal events. Denies urinary symptoms. In the ED, CXR shows right upper lobe pneumonia. Patient was hypoxic on room air at 89%, she is currently saturating well on 2 L of oxygen via nasal cannula. Labs show WBC 5K, Hgb 8.5, platelets 30 2K, ANC 0.61. COVID-19 and influenza testing is negative. Patient was given IVF and IV ceftriaxone. Allergies Allergy/AdvReac Type Severity Reaction Status Date / Time prednisone Allergy Intermediate HEADACHES Verified 07/30/20 19:02 codeine AdvReac Severe Nausea Unverified 07/30/20 19:02 Home Medications Medication Instructions Recorded Confirmed Type biotin 5,000 mcg SUBLINGUAL BID 07/30/20 07/30/20 History calcium citrate-vitamin D3 2 tab PO DAILY 07/30/20 07/30/20 History [Citracal Regular] cholecalciferol (vitamin D3) 50 mcg PO DAILY 07/30/20 07/30/20 History cyanocobalamin (vitamin B-12) 1,000 mcg IM UD 07/30/20 07/30/20 History ergocalciferol (vitamin D2) 1,250 mcg PO DAILY 07/30/20 07/30/20 History [Vitamin D2] escitalopram oxalate 20 mg PO DAILY 07/30/20 07/30/20 History losartan 50 mg PO DAILY 07/30/20 07/30/20 History multivitamin [Multiple Vitamin] 1 tab PO DAILY 07/30/20 07/30/20 History oxybutynin chloride 10 mg PO DAILY 07/30/20 07/30/20 History zolpidem 10 mg PO HS PRN 07/30/20 07/30/20 History Past Med/Surg History Medical History Chronic diarrhea Depression Dyslipidemia Hypertension DMITRY (obstructive sleep apnea) Overactive bladder Surgical History History of cholecystectomy History of partial hysterectomy History of Jarvis-en-Y gastric bypass History of tonsillectomy and adenoidectomy S/P repair of paraesophageal hernia S/P KATINA (total abdominal hysterectomy) Family History Mother Breast cancer Social History Smoking Status: Former smoker Second Hand Exposure: No; Do You Dip or Chew Tobacco: No; Tobacco Cessation Education Requested by Patient: No Hx Alcohol Use: No Hx Substance Use: No Preferred Language: Vietnamese Granulator Required: No Beliefs That Will Affect Care: None Current Living Situation: Spouse Other Information That Helps Us Care for You: No Feels Safe at Home: Yes Safety Concerns: Feels Safe At This Time Assistive Devices: Denture - Upper, Glasses, Hearing Aid - Left and Hearing Aid - Right Review of Systems Review of Systems: ROS per HPI, all other systems reviewed and negative Physical Exam Constitutional: WD/WN, vitals as above Eyes: PERRL, conjunctivae normal, anicteric sclerae ENMT: external ear and nose normal, oropharynx normal Respiratory: normal respiratory effort; no respiratory distress Auscultation: + rales (faint, right base) Cardiovascular: Rate/Rhythm: regular rate and regular rhythm Vessels: normal peripheral pulses Extremities: no edema Gastrointestinal (Abdomen): normal bowel sounds, soft, nontender, no hepatosplenomegaly Musculoskeletal: no cyanosis or clubbing, extremities motor strength 5/5 Skin: no rashes, warm and dry Neurologic: PERRL, EOMI, accommodation nl, no face palsy, no dysarthria Psychiatric: A+Ox3, euthymic affect Results & Data Results & Data ([facility]) Vital Signs (Past 12 Hours) Vital Signs Temp Pulse Pulse Resp BP BP Pulse Ox 07/30/20 20:45 18 94 07/30/20 20:37 37.8 C H 07/30/20 20:30 83 19 99 07/30/20 20:04 88 17 166/80 H 92 07/30/20 19:44 77 20 135/68 98 07/30/20 19:30 78 19 135/68 98 07/30/20 19:13 79 19 140/58 L 98 07/30/20 18:50 80 19 98 07/30/20 18:40 83 19 98 07/30/20 18:30 78 19 98 07/30/20 18:20 77 21 98 07/30/20 18:10 77 20 98 07/30/20 18:00 76 20 99 07/30/20 17:50 77 19 99 07/30/20 17:40 75 20 99 07/30/20 17:30 75 19 99 07/30/20 17:20 79 19 99 07/30/20 17:10 76 18 98 07/30/20 17:09 81 20 137/89 98 07/30/20 17:05 80 19 98 07/30/20 17:01 81 18 137/69 98 07/30/20 16:32 81 80 20 137/69 98 07/30/20 13:22 37.3 C 99 H 20 124/66 91 Laboratory Results Short CBC 07/30/20 Range/Units 16:40 WBC 5.43 (4.8-10.8) K/uL Hgb 8.5 L (12.0-16.0) g/dL Hct 26.4 L (37-47) % Plt Count 32 L (130-400) K/uL BMP 07/30/20 16:40 Sodium 140 Potassium 3.2 L Chloride 104 Carbon Dioxide 30 BUN 11 Creatinine 0.76 Glucose 126 H Calcium 8.2 L Cardiac Enzymes 07/30/20 Range/Units 16:40 Troponin I < 0.015 (0-0.045) ng/ml Liver Function 07/30/20 Range/Units 16:40 Total Bilirubin 0.5 (0.2-1) mg/dl AST 24 (15-37) U/L ALT 31 (12-78) U/L Alkaline Phosphatase 42 L (45-117) U/L Albumin 2.9 L (3.4-5.0) gm/dl Diagnostic Findings CXR IMPRESSION: Right upper lobe airspace opacity. This favors a pneumonia. However, one month chest follow-up recommended to exclude the possibility of a pulmonary lesion. Supervising Physician Co-Signing Physician Notes IM ATTENDING : Patient seen and examined. History obtained from patient and records. Preceding documentation by PATO Jameson reviewed. In addition, stool Hemoccult done at bedside was negative. FINAL ASSESSMENT AND PLAN as follows : Community-acquired pneumonia Atypical symptoms No overt sepsis for now New onset anemia Possibly from iron deficiency History of gastric bypass Periodic outpatient vitamin B12 injections being given since bariatric procedure about 10 years ago. New onset thrombocytopenia Hypertension, slightly elevated Mood disorder at baseline hyperglycemia rule out DM Hypokalemia secondary to illness, diarrhea predominant IBS Past tobacco use Medical telemetry given elevated BP Ceftriaxone, Doxycycline Anemia work-up Transfuse PRBC if hemoglobin less than 7 and or for symptomatic anemia Peripheral blood smear for anemia, new onset thrombocytopenia replace potassium Check hemoglobin A1c DVT prophylaxis. SCDs Re: Thrombocytopenia Full code Text document was generated using [employer] voice recognition software. It may contain grammatical or spelling errors. Kindly contact undersigned for clarification of any documentation item in question.
[2020-07-30] MEDS ORDERED: methylPREDNISolone 20 MG in SYRINGE 0 ML IV STA (21:02)
[2020-07-30] MEDS ORDERED: DOXYCYCLINE HYCLATE 100 MG in DEXTROSE 5% 100 ML IV STA (21:02)
[2020-07-30] MEDS ORDERED: ALBUT/IPRATROP 3MG/0.5MG NEB 3 ML VIAL NEB STA (21:02)
[2020-07-30] MEDS ORDERED: ALBUT/IPRATROP 3MG/0.5MG NEB 3 ML VIAL ONE (21:09)
[2020-07-30] MEDS ORDERED: ALBUT/IPRATROP 3MG/0.5MG NEB 3 ML VIAL NEB PRN (21:11)
[2020-07-30] MEDS ORDERED: guaiFENesin 600 MG TABCR PO STA (21:38)
[2020-07-30 23:13] LABS: Reticulocyte % 2.8 % (0.5-2.0); Reticulocytes # 0.05 10^6/uL (0.02-0.10)
[2020-07-30 23:14] LABS: Base Excess ABG 2.7 mEq/L (-9-1.8); HCO3 ABG 27 mmol/L (19-24); Oxygen Saturation ABG 97.9 % (90-95); PCO2 ABG 39 mmHg (35-46); PO2 ABG 105 mmHg (80-95); pH ABG 7.45 (7.35-7.45)
[2020-07-30 23:15] LABS: Allen Test POS (Pos)
[2020-07-30] MEDS ORDERED: ZOLPIDEM TARTRATE 10 MG TAB PO PRN (23:24)
[2020-07-30] MEDS ORDERED: traMADol HCL 50 MG TABLET PO PRN (23:24)
[2020-07-30] MEDS ORDERED: PROMETHAZINE HCL 12.5 MG in SODIUM CHLORIDE 0.9% 50 ML IV PRN (23:24)
[2020-07-30 23:32] LABS: Hematocrit (blood only) 18.2 % (37-47); Hemoglobin 5.9 g/dL (12.0-16.0)
[2020-07-31] MEDS ORDERED: POTASSIUM CHLORIDE 40 MEQ in SODIUM CHLORIDE 0.9% 1000ML 1,000 ML IV ONE
[2020-07-31 00:12] LABS: Folate (Folic Acid) > 20.00 ng/ml (>5.38); Vitamin B12 720 pg/ml (193-986)
[2020-07-31] MEDS ORDERED: SODIUM CHLORIDE 0.9% 250 ML IV PRN (00:16)
[2020-07-31 00:55] LABS: Hematocrit (blood only) 24.8 % (37-47); Hemoglobin 8.1 g/dL (12.0-16.0)
[2020-07-31 07:32] LABS: Ovalocytes 1+; Platelet Estimate SIGNIFIC DECREASED (Normal); Schistocytes 1+; Target Cells 1+
[2020-07-31 07:34] LABS: ALC (manual) 0.98 K/uL (1.2-3.4); ANC (manual) 0.46 K/uL (1.4-6.5); BUN Creatinine Ratio 15.4 (10-20); Blast # (manual) 0.03 K/uL (0-0); Blast Cells % (manual) 1.7 %; Calcium 7.9 mg/dl (8.5-10.1); Creatinine Clr Calc Pharmacy 77.5 ml/min; Est GFR (Non-African American) 83.7; Hematocrit (blood only) 26.6 % (37-47); Hemoglobin 8.6 g/dL (12.0-16.0); Lymphocytes # (manual) 0.98 K/uL (1.2-3.4); Lymphocytes % (manual) 57.4 %; Mean Corpuscular Hemoglobin 34.1 pg (25-34); Mean Corpuscular Hgb Conc 32.3 g/dL (32-36); Mean Corpuscular Volume 105.6 fL (80-100); Mean Platelet Volume 11.8 fL (7.4-10.4); Metamyelocytes # (manual) 0.02 K/uL (0-0); Metamyelocytes % (manual) 0.9 %; Monocytes # (manual) 0.22 K/uL (0.11-0.59); Neutrophils # (manual) 0.46 K/uL (1.4-6.5); Nucleated RBC # (auto) 0.03 K/uL (0-0); Platelet Count 29 K/uL (130-400); Potassium 4.1 mmol/L (3.5-5.1); RDW Coefficient of Variation 15.9 % (11.5-14.5); RDW Standard Deviation 61.2 fL (36.4-46.3); Red Blood Count 2.52 M/uL (4.2-5.4)
[2020-07-31] MEDS ORDERED: CHOLECALCIFEROL 1,000 UNITS 25 MCG TAB PO SCH (09:00)
[2020-07-31] MEDS ORDERED: LOSARTAN POTASSIUM 50 MG TAB PO SCH (09:00)
[2020-07-31] MEDS ORDERED: OXYBUTYNIN CHLORIDE XL 5 MG TABCR PO SCH (09:00)
[2020-07-31] MEDS ORDERED: ESCITALOPRAM OXALATE 20 MG TAB PO SCH (09:00)
[2020-07-31] MEDS ORDERED: MULTIVITAMIN TAB PO SCH (09:00)
[2020-07-31] MEDS ORDERED: guaiFENesin 600 MG TABCR PO SCH (09:00)
[2020-07-31] MEDS ORDERED: DOXYCYCLINE HYCLATE 100 MG CAP PO SCH (09:00)
[2020-07-31] MEDS ORDERED: ERGOCALCIFEROL 50,000 UNITS 1250 MCG CAP PO SCH (09:00)
--- NOTE | 2020-07-31 10:43 | Consultation ---
Date of Consultation July 31, 2020 Assessment & Plan (1) Pancytopenia: 70 y/o female who presents with pancytopenia and circulating blasts - this condition is worrisome for high grade myelodysplasia or acute myeloid leukemia - spoke to the pathologist to send off flow cytometry and FISH panel for AML - transfuse blood to keep Hgb above 8 g/dL and platelet to keep above 10k or for clinical bleeding - continue empiric antibiotic therapy for febrile neutropenia - coag tests are normal, will check fibrinogen level (less likely promyelocytic leukemia) - check uric acid, LDH, G6PD - will need a BM biopsy, however, patient may be transferred to a tertiary center for further workup and induction therapy - patient is agreeable with the plan. All questions were answered - thank you for the courtesy of this consultation. Feel free to contact if any questions - Dr. Justin will cover during the weekend - of note, pathologist indicated that actual blasts are around 16% with myelomonocytic features on peripheral smear Present on Admission?: Yes History of Present Illness Reason for Consultation: Pancytopenia Attending Physician: Az Salmon MD History of Present Illness 70-year-old female with hx of dyslipidemia, HTN, s/p Jarvis-en-Y gastric bypass, chronic diarrhea who presents to the ED for evaluation of fever, weakness and cough. Patient reports she has been sick for the past 5 days. Reports persistent fever of around 101F, nonproductive cough, exertional dyspnea, and anorexia. No nausea, vomit, overt GI bleed. No easy bleeding or bruising. Denies urinary symptoms. In the ED, CXR shows right upper lobe pneumonia. Patient was hypoxic on room air at 89%, she is currently saturating well on 2 L of oxygen via nasal cannula. Labs showed WBC 5.4, Hgb 5.9, Hct 18.2, platelets 32, ANC 0.61, ALC 3.2, [place] 1.5 (H), Blasts 1.7%. COVID-19 and influenza testing were negative. Patient received PRBC transfusion. No acute symptoms or complaints now. No hx of malignancies or BM disorder, no hx of chemotherapy or irradition in the past. Patient was seen and examined at bedside. Lab data and imaging studies were reviewed. Allergies Allergy/AdvReac Type Severity Reaction Status Date / Time prednisone Allergy Intermediate HEADACHES Verified 07/30/20 19:02 codeine AdvReac Severe Nausea Unverified 07/30/20 19:02 Home Medications Medication Instructions Recorded Confirmed Type biotin 5,000 mcg SUBLINGUAL BID 07/30/20 07/30/20 History calcium citrate-vitamin D3 2 tab PO DAILY 07/30/20 07/30/20 History [Citracal Regular] cholecalciferol (vitamin D3) 50 mcg PO DAILY 07/30/20 07/30/20 History cyanocobalamin (vitamin B-12) 1,000 mcg IM UD 07/30/20 07/30/20 History ergocalciferol (vitamin D2) 1,250 mcg PO DAILY 07/30/20 07/30/20 History [Vitamin D2] escitalopram oxalate 20 mg PO DAILY 07/30/20 07/30/20 History losartan 50 mg PO DAILY 07/30/20 07/30/20 History multivitamin [Multiple Vitamin] 1 tab PO DAILY 07/30/20 07/30/20 History oxybutynin chloride 10 mg PO DAILY 07/30/20 07/30/20 History zolpidem 10 mg PO HS PRN 07/30/20 07/30/20 History doxycycline hyclate 100 mg PO BID #0 cap 07/31/20 Rx Patient History Medical History Chronic diarrhea Depression Dyslipidemia Hypertension DMITRY (obstructive sleep apnea) Overactive bladder Surgical History History of cholecystectomy History of partial hysterectomy History of Jarvis-en-Y gastric bypass History of tonsillectomy and adenoidectomy S/P repair of paraesophageal hernia S/P KATINA (total abdominal hysterectomy) Family History Mother Breast cancer Social History Smoking Status: Former smoker Second Hand Exposure: No; Do You Dip or Chew Tobacco: No; Tobacco Cessation Education Requested by Patient: No Hx Alcohol Use: No Hx Substance Use: No Preferred Language: Italian Communication Ability: Effective Bilingual Administrative Assistant Required: No Beliefs That Will Affect Care: None Current Living Situation: Spouse Other Information That Helps Us Care for You: No Feels Safe at Home: Yes Safety Concerns: Feels Safe At This Time Assistive Devices: Denture - Upper, Glasses, Hearing Aid - Left and Hearing Aid - Right Review of Systems Review of Systems: Constitutional: FEVER, FATIGUE, ANOREXIA Eyes: Negative for event change of vision ENT: Negative for epistaxis, nasal discharge, sore throat, or deafness Cardiovascular: Negative for anginal type chest pain, palpitations, dizziness, diaphoresis Respiratory: EXERTIONAL DYSPNEA, DRY COUGH Gastrointestinal: Negative for hematemesis, melena, nausea, vomiting, or dysp epsia. DIARRHEA Integumentary (skin): Negative for rash or jaundice discoloration Genitourinary: Negative for urinary frequency, hematuria, or dysuria Neurological: Negative for weakness, seizure activity, headache, or dizziness Lymphatic/Hematologic: Negative for petechiae, bleeding or new adenopathy Musculoskeletal: Negative for new joint or back pain Allergic/Immunologic: Negative for unusual rash or pruritus Physical Exam Physical Exam: Constitutional: Vitals are stable Eyes: Eyes are DANII EOMI without conjunctival erythema or icterus. ENT: External examination was negative for masses. Neck: Negative for masses or palpable thyromegaly. Respiratory: Lung sounds were generally clear bilaterally. Cardiovascular: Heart was RRR without significant murmur, gallops or rubs. Gastrointestinal: The abdomen was soft with normal bowel sounds. Lymphatic system: There was no palpable peripheral lymphadenopathy. Musculoskeletal System: The musculoskeletal system seemed concordant with age. Skin: The skin was negative for jaundice. Neurologic Exam: The exam was negative for any focal findings. Extremities: Negative for edema or erythema Results & Data ([facility]) Vital Signs (Past 12 Hours) Vital Signs Temp Pulse Pulse Resp BP Pulse Ox 07/31/20 07:57 91 H 07/31/20 07:33 36.6 C 73 18 130/75 97 07/31/20 03:00 78 07/31/20 02:25 36.9 C 70 18 143/78 H 93 07/30/20 23:30 78 18 176/70 H 91 Laboratory Results Short CBC 07/30/20 Range/Units 16:40 WBC 5.43 (4.8-10.8) K/uL Hgb 8.5 L (12.0-16.0) g/dL Hct 26.4 L (37-47) % Plt Count 32 L (130-400) K/uL BMP 07/30/20 16:40 Sodium 140 Potassium 3.2 L Chloride 104 Carbon Dioxide 30 BUN 11 Creatinine 0.76 Glucose 126 H Calcium 8.2 L Cardiac Enzymes 07/30/20 Range/Units 16:40 Troponin I < 0.015 (0-0.045) ng/ml Liver Function 07/30/20 Range/Units 16:40 Total Bilirubin 0.5 (0.2-1) mg/dl AST 24 (15-37) U/L ALT 31 (12-78) U/L Alkaline Phosphatase 42 L (45-117) U/L Albumin 2.9 L (3.4-5.0) gm/dl Diagnostic Findings CXR IMPRESSION: Right upper lobe airspace opacity. This favors a pneumonia. However, one month chest follow-up recommended to exclude the possibility of a pulmonary lesion.
[2020-07-31] MEDS ORDERED: CALCIUM 600MG + VIT D 400 IU TAB PO SCH (12:00)
--- NOTE | 2020-07-31 12:30 | Hospitalist Progress Note ---
Date of Service July 31, 2020 Assessment & Plan (1) Pneumonia: Currently acquired pneumonia Hypoxia No signs of sepsis Chest x-ray: Right upper lobe airspace opacity. This favors a pneumonia. However, one month chest follow-up recommended to exclude the possibility of a pulmonary lesion. Normal lactate, procalcitonin levels Negative COVID, influenza, RSV screen Continue Rocephin, doxycycline Blood cultures pending Saturating well on 2 L of supplemental oxygen Nebs PRN Pancytopenia Acute symptomatic anemia Neutropenia Thrombocytopenia H/O Past Tobacco use DD: high grade myelodysplasia or acute myeloid leukemia Peripheral Smear: Showed prominent neutropenia, microcytic eddie, circulating blasts. Blasts showed myelomonocytic features. Findings concerning for myelodysplastic syndrome with increased blasts or acute myeloid leukemia. Normal vitamin B12, folic acid levels. Iron panel reviewed. S/P 2 units PRBCs Monitor CBC Transfuse as needed to keep Hb>8 and platelets greater than 10K Neutropenic precautions Appreciate oncology input FISH panel, LDH, uric acid, flow cytometry,G6PD, fibrinogen levels pending No bleeding issues Likely plan to transfer to tertiary care facility if accepted for possible induction therapy Hypertension Continue home medications Hypokalemia Replete electrolytes as needed Monitor H/O gastric bypass History of chronic diarrhea Mood disorder Continue escitalopram, Ambien DVT Px: SCDs Re: Significant anemia, thrombocytopenia CODE STATUS Full code Disposition Likely discharge to tertiary care facility if accepted. Admission and Anticipated Discharge Date Admission Date: July 30, 2020 Subjective Patient is seen and examined bedside Complaints dry cough Also reports chronic diarrhea Denies chest pain, dyspnea, dizziness, nausea, abdominal pain Discussed with oncologist fusion juncture grinder in detail Also updated patient's family. Review of Systems Review of Systems: All systems reviewed & are unremarkable except as noted in HPI & below Physical Exam Physical Exam: Physical Exam: Vitals signs as noted above General Appearance:Moderately built and nourished, no apparent distress, +Hearing impairment Head: normocephalic, Atraumatic Eyes: normal inspection, EOMI, +Pallor Neck: supple, Trachea midline Respiratory/Chest: Normal breath sounds, CTA Cardiovascular: S1, S2, No murmur Abdomen/GI:Soft, Non tender, Bowel sounds present Extremities/Musculoskelatal:normal inspection, no edema Neurologic/Psych:AAOX3, grossly no focal neurological deficits Skin: normal color, warm, +Multiple tattoos Results & Data Results & Data ([facility]) Vital Signs (Past 12 Hours) Vital Signs Temp Pulse Pulse Resp BP Pulse Ox 07/31/20 07:57 91 H 07/31/20 07:33 36.6 C 73 18 130/75 97 07/31/20 03:00 78 07/31/20 02:25 36.9 C 70 18 143/78 H 93 Laboratory Results Short CBC 07/30/20 07/30/20 07/31/20 Range/Units 16:40 22:56 00:43 WBC 5.43 (4.8-10.8) K/uL Hgb 8.5 L 5.9 L* 8.1 L (12.0-16.0) g/dL Hct 26.4 L 18.2 L* 24.8 L (37-47) % Plt Count 32 L (130-400) K/uL 07/31/20 Range/Units 06:09 WBC 1.70 L (4.8-10.8) K/uL Hgb 8.6 L (12.0-16.0) g/dL Hct 26.6 L (37-47) % Plt Count 29 L* (130-400) K/uL BMP 07/30/20 07/31/20 16:40 06:09 Sodium 140 142 Potassium 3.2 L 4.1 D Chloride 104 109 H Carbon Dioxide 30 29 BUN 11 11 Creatinine 0.76 0.72 Glucose 126 H 173 H Calcium 8.2 L 7.9 L Cardiac Enzymes 07/30/20 Range/Units 16:40 Troponin I < 0.015 (0-0.045) ng/ml Liver Function 07/30/20 Range/Units 16:40 Total Bilirubin 0.5 (0.2-1) mg/dl AST 24 (15-37) U/L ALT 31 (12-78) U/L Alkaline Phosphatase 42 L (45-117) U/L Albumin 2.9 L (3.4-5.0) gm/dl (1) Pneumonia Laterality: right Lung location: upper lobe of lung Pneumonia type: due to unspecified organism Qualified Code(s): J18.9 - Pneumonia, unspecified organism
[2020-07-31 12:43] LABS: Hematocrit (blood only) 25.8 % (37-47); Hemoglobin 8.3 g/dL (12.0-16.0)
--- NOTE | 2020-07-31 13:08 | Discharge Summary ---
Date of Service July 31, 2020 Admission HPI Per Admitting Provider 70-year-old female with PMH dyslipidemia, HTN, history of Jarvis-en-Y gastric bypass, chronic diarrhea, and other problems listed below who presents to the ED for evaluation of fever, weakness, cough. Patient reports she has been sick for about the past 5 days. Reports persistent fever of around 101. Reports a dry, nonproductive cough. She reports shortness of breath at rest as well as with minimal exertion. She has had a very poor appetite however denies nausea and vomiting. No abdominal pain. Reports chronic diarrhea that is worse from baseline. Denies hematemesis or coffee-ground emesis. No bright red bleeding per rectum or dark tarry stools. Denies chest pain. No lightheadedness, dizziness, diaphoresis, syncopal events. Denies urinary symptoms. In the ED, CXR shows right upper lobe pneumonia. Patient was hypoxic on room air at 89%, she is currently saturating well on 2 L of oxygen via nasal cannula. Labs show WBC 5K, Hgb 8.5, platelets 30 2K, ANC 0.61. COVID-19 and influenza testing is negative. Patient was given IVF and IV ceftriaxone. Admission Exam Per Admitting Provider Physical Exam Constitutional: WD/WN, vitals as above Eyes: PERRL, conjunctivae normal, anicteric sclerae ENMT: external ear and nose normal, oropharynx normal Respiratory: normal respiratory effort; no respiratory distress Auscultation: + rales (faint, right base) Cardiovascular: Rate/Rhythm: regular rate and regular rhythm Vessels: normal peripheral pulses Extremities: no edema Gastrointestinal (Abdomen): normal bowel sounds, soft, nontender, no hepatosplenomegaly Musculoskeletal: no cyanosis or clubbing, extremities motor strength 5/5 Skin: no rashes, warm and dry Neurologic: PERRL, EOMI, accommodation nl, no face palsy, no dysarthria Psychiatric: A+Ox3, euthymic affect Principal Diagnosis Currently acquired pneumonia Pancytopenia Acute symptomatic anemia Neutropenia Thrombocytopenia Discharge Data Allergies Allergy/AdvReac Type Severity Reaction Status Date / Time prednisone Allergy Intermediate HEADACHES Verified 07/30/20 19:02 codeine AdvReac Severe Nausea Unverified 07/30/20 19:02 Consultations 07/30/20 19:44 ED Decision to Admit Stat 07/31/20 08:39 Consult Hematology Routine Procedures Performed CXR: Right upper lobe airspace opacity. This favors a pneumonia. However, one month chest follow-up recommended to exclude the possibility of a pulmonary lesion. Peripheral Smear: The peripheral blood shows a macrocytic anemia with increased anisopoikilocytosis consisting of elliptocytes, acanthocytes, and rare teardrops. Circulating nucleated red cells are seen. There is no significant increase in schistocytes or spherocytes. There is no evidence of rouleaux, RBC agglutination, or basophilic stippling. The WBC is normal; however, there is a severe neutropenia. The granulocytes are left-shifted and show abnormal nuclear lobation and granulation. Frequent circulating blasts are seen at approximately 16%. The monocytes are left-shifted as well with increased cytoplasmic vacuoles. The lymphocytes are small to moderate in size and mature, with occasional reactive and large, granular forms noted. No overt atypical features are identified. The platelets are quantitatively decreased. No overtly dysplastic or giant forms are identified. There is no significant platelet clumping or satellitosis. The peripheral smear is remarkable for a prominent neutropenia, macrocytic anemia, and increased circulating blasts. While the blast count was originally read as 1.7% by the technologist, pathologist review shows a much high number of approximately 16%. A lot of the blasts show myelomonocytic features and were likely confused with monocytes (which were originally counted as high). The overall features are highly concerning for myelodysplastic syndrome with increased blasts or acute myeloid leukemia. I am very concerned that the patient has acute myeloid leukemia and a marrow biopsy is necessary for further evaluation. Flow cytometry has been ordered on the peripheral blood and the results will be reported separately. Hospital Course (1) Pneumonia: Community acquired pneumonia Hypoxia No signs of sepsis Chest x-ray: Right upper lobe airspace opacity. This favors a pneumonia. However, one month chest follow-up recommended to exclude the possibility of a pulmonary lesion. Normal lactate, procalcitonin levels Negative COVID, influenza, RSV screen Continue Rocephin, doxycycline Blood cultures pending Saturating well on 2 L of supplemental oxygen Nebs PRN Pancytopenia Acute symptomatic anemia Neutropenia Thrombocytopenia H/O Past Tobacco use DD: high grade myelodysplasia or acute myeloid leukemia Peripheral Smear: Showed prominent neutropenia, microcytic eddie, circulating blasts. Blasts showed myelomonocytic features. Findings concerning for myelodysplastic syndrome with increased blasts or acute myeloid leukemia. Normal vitamin B12, folic acid levels. Iron panel reviewed. S/P 2 units PRBCs Monitor CBC Transfuse as needed to keep Hb>8 and platelets greater than 10K Neutropenic precautions Appreciate oncology input FISH panel, LDH, uric acid, flow cytometry,G6PD, fibrinogen levels pending No bleeding issues Likely plan to transfer to tertiary care facility if accepted for possible induction therapy Hypertension Continue home medications Hypokalemia Replete electrolytes as needed Monitor H/O gastric bypass History of chronic diarrhea Mood disorder Continue escitalopram, Ambien DVT Px: SCDs Re: Significant anemia, thrombocytopenia CODE STATUS Full code Disposition Likely discharge to tertiary care facility if accepted. Total Time Total Time Spent Total Time Spent (In Minutes): 55 minutes Total Time Includes: Examination of the Patient, Discharge Planning, Medication Reconciliation, Communication With Other Providers and Other Discharge Plan Discharge Items Patient Disposition: Transfer Acute Care Hospital Reason For Visit: RESP FAILURE Discharge Diagnosis: Currently acquired pneumonia Pancytopenia Acute symptomatic anemia Neutropenia Thrombocytopenia Condition on Discharge: Good Activity: Per Instructions section Exercise/Sports: Wait until after follow-up appointment Non-emergency contact: Primary Care Provider and Oncologist Call non-emergency contact if: you have any medication questions, your symptoms worsen, your pain is not controlled, your pain is worsening, your pain is unusual for you, your pain is concerning for you and you have a fever Follow-up/Referrals: Monica Stewart DO [Primary Care Provider] - Diet: Heart Healthy Addtl Attending Provider Instructions: Follow up with Dr.Joseph Harrington (Hematology/Oncology) at [facility] for further evaluation and management Pending Studies at Discharge: Yes Studies:: FISH panel, LDH, uric acid, flow cytometry,G6PD, fibrinogen levels Stand-Alone Forms: My [facility] Skilled Items Patient informed of condition?: Yes DNR: No Discharge Level of Care: Other Communicable Disease: No Discharge Prognosis: Stable Lines: Peripheral IV Urinary Catheter: No Medications and DC Order Prescriptions: New doxycycline hyclate 100 mg Capsule 100 mg PO BID Qty: 0 RF: 0 Continued losartan 50 mg tablet 50 mg PO DAILY RF: 0 zolpidem 10 mg tablet 10 mg PO HS PRN (Reason: Insomnia) RF: 0 oxybutynin chloride 10 mg tablet extended release 24hr 10 mg PO DAILY RF: 0 escitalopram oxalate 20 mg tablet 20 mg PO DAILY RF: 0 cholecalciferol (vitamin D3) 50 mcg (2,000 unit) Tablet 50 mcg PO DAILY RF: 0 multivitamin [Multiple Vitamin] Tablet 1 tab PO DAILY RF: 0 ergocalciferol (vitamin D2) [Vitamin D2] 1,250 mcg (50,000 unit) Capsule 1,250 mcg PO DAILY RF: 0 calcium citrate-vitamin D3 [Citracal Regular] 250 mg-5 mcg (200 unit) Tablet 2 tab PO DAILY RF: 0 cyanocobalamin (vitamin B-12) 1,000 mcg/mL Kit 1,000 mcg IM UD RF: 0 biotin 5,000 mcg Tablet, Sublingual 5,000 mcg SUBLINGUAL BID RF: 0 Discharge Orders: Discharge Order (Routine); Ordered 07/31/20 Ordered By: Az Salmon Admission Data Admit Date/Time: 07/30/20 22:01 Attending Provider: Az Salmon Admit Provider: Jovi Kelly Primary Care Provider: Moncia Stewart Other Providers: Jovi Kelly ; Kyle Justin V.
[2020-07-31 13:13] LABS: Fibrinogen 539 mg/dl (184-400)
--- NOTE | 2020-07-31 13:53 | Communication Note ---
Date of Service: July 31, 2020 After review of this patient's case and discussion with the attending physician, this patient is very ill and requiring a higher level of inpatient care at another facility. Therefore, she will remain an inpatient status and no Code 44 will apply here. Cori Mckeon DO [facility] Hospitalist UR modular set crew member
[2020-07-31] MEDS ORDERED: cefTRIAXone SODIUM 2,000 MG in DEXTROSE 5% 50 ML IV SCH (17:00)
--- NOTE | 2020-07-31 17:57 | Electrocardiogram Report ---
Test Reason : Blood Pressure : / mmHG Vent. Rate : 084 BPM Atrial Rate : 085 BPM P-R Int : 000 ms QRS Dur : 084 ms QT Int : 432 ms P-R-T Axes : 000 009 022 degrees QTc Int : 510 ms Poor data quality, interpretation may be adversely affected Accelerated Junctional rhythm T wave abnormality, consider inferior ischemia Prolonged QT Abnormal ECG When compared with ECG of 18-NOV-2014 06:40, Junctional rhythm has replaced Sinus rhythm QT has lengthened Confirmed by George Aden ([id number]) on 07/31/2020 5:57:02 PM Referred By: REFERRED SELF Confirmed By:George Aden
--- NOTE | 2020-07-31 18:11 | Electrocardiogram Report ---
Test Reason : Blood Pressure : / mmHG Vent. Rate : 068 BPM Atrial Rate : 068 BPM P-R Int : 198 ms QRS Dur : 088 ms QT Int : 424 ms P-R-T Axes : 064 051 056 degrees QTc Int : 450 ms Normal sinus rhythm Nonspecific T wave abnormality Abnormal ECG When compared with ECG of 30-JUL-2020 16:32, (unconfirmed) Sinus rhythm has replaced Junctional rhythm T wave inversion no longer evident in Inferior leads Nonspecific T wave abnormality has replaced inverted T waves in Lateral leads QT has shortened Confirmed by George Aden ([id number]) on 07/31/2020 6:10:37 PM Referred By: REFERRED SELF Confirmed By:George Aden
== END 2020-07-31 14:46 | disposition short-term general hospital (02) | DRG 194 ==
LOC: ED 12:55 → 2N 22:01 → 2W 07-31 08:00